=== PATIENT | female | born 1950 | race Caucasian/White ===

== ENCOUNTER 2020-06-04 16:54 | Emergency (ER) | payer MEDICARE, OTHER ==
[2020-06-05 14:44] LABS: SARS-CoV-2 MS2 Positive; SARS-CoV-2 N Gene Positive; SARS-CoV-2 S Gene Positive; SARS-CoV-2 orf1ab Positive
== END 2020-06-04 17:45 | disposition home or self-care (01) ==
LOC: ERS 16:54
DX: U07.1 COVID-19 (principal); E03.9 Hypothyroidism, unspecified
CPT/HCPCS: 99283; U0003; 87635